=== PATIENT | male | born 1950 | race Caucasian/White ===

== ENCOUNTER → 2022-01-24 | Outpatient (CLI) | payer MEDICARE ==
--- NOTE | 2022-01-24 14:39 | XR ---
Lumbar spine HISTORY: Low back pain 3 views of the lumbar spine, 4 images No comparisons There is an anterolisthesis grade 1 L3-4. Multilevel spondylosis is present. Loss of disc height is p resent at intervertebral levels, greatest at L5-S1 with associated vacuum phenomenon. Sclerosis is pr esent in the posterior elements consistent with facet arthropathy. There is a slight spinal curvature . IMPRESSION: Degenerative disc disease and facet arthropathy, spondylolisthesis is likely degenerative . Mild spinal curvature.
== END | disposition home or self-care (01) ==
LOC: RADXRMAIN 10:52
PROVIDERS: ATTEND Internal Medicine
DX: M51.36 Other intervertebral disc degeneration, lumbar region (principal); M43.16 Spondylolisthesis, lumbar region; M47.816 Spondylosis without myelopathy or radiculopathy, lumbar region
CPT/HCPCS: 72100